=== PATIENT | male | born 1950 | race African-American/Black ===

== ENCOUNTER → 2017-07-01 | Day surgery (SDC) | payer OTHER ==
[~2017-07-01] MED LIST: BUPIVACAINE HCL PF 0.5% 30 ML VIAL ONE; GLUCTAB PO; LACTATED RINGER'S 1000 ML INJ 1,000 ML ONE; LIPI40TA PO; LORT7.5T3 PO; LOTR5CAP2 PO; MIDAZOLAM HCL 2 MG/2 ML VIAL ONE; ONDANSETRON HCL 4 MG/2 ML VIAL IV PUSH ONE; PIOG15 PO; PROPOFOL 200 MG/20 ML AMP IV ONE; ceFAZolin INJ 1,000 MG VIAL ONE
--- NOTE | 2017-07-01 20:15 | MP ---
cc: NYA GARDUNO DATE OF SURGERY 07/01/17 PREOPERATIVE DIAGNOSIS Left foot mass. POSTOPERATIVE DIAGNOSES Left foot mass. PROCEDURE Surgical excision left foot mass. SURGEON Dr. Santi Garduno [employer]MER DRIVER RADHA Machado ANESTHESIA General. ESTIMATED BLOOD LOSS Less than 10 mL TOURNIQUET TIME Zero minutes. JUSTIFICATION This patient is a 56-year male who has a symptomatic recurrent mass along the anteromedial aspect of the dorsal portion of the left foot. The mass is symptomatically painful. He was evaluated at the [facility]. He was counseled as to risks, benefits and alternatives of surgical excision of this mass. He did wish to procedure with surgery. PROCEDURE IN DETAIL A written consent was obtained. The patient was identified by name, taken to the operating room and placed supine on a operating room table. General anesthesia was administered as well as 1 gram of IV Ancef. The left foot and left lower extremity were prepped and draped using Isopropyl alcohol, Hibiclens solution and DuraPrep solution. A time-out was performed. A longitudinal incision was made over the dorsal medial aspect of the left foot in line with the mass. A soft tissue dissection was performed with a 10 blade scalpel circumferentially around the mass and the mass was completely excised with a 15 blade scalpel. The surgical wound was thoroughly irrigated with sterile saline solution. The subcutaneous layer was closed with 3-0 Vicryl suture, Dermabond was applied. Sterile dressing applied. The patient tolerated the procedure well with no intraoperative complications noted. Hernan Arthur, physician assistant controller certified, was present during the entire procedure to include patient positioning and procedure itself. The medical necessity of a physician assistant controller was indicated due to the complexity of the procedure. He assisted with appropriate exposure and to allow for a complete surgical excision of the mass. MD KAEL Meza/ /10:33 AM /8:02 PM
== END | disposition home or self-care (01) ==
LOC: ESDC 08:40
PROVIDERS: ATTEND Orthopaedic Surgery Sports Medicine
DX: M67.472 Ganglion, left ankle and foot (principal)
CPT/HCPCS: 00400; 28043; 88304; J0690; J2250; J2405; J3010; J7120; 88305

== ENCOUNTER 2018-02-13 08:37 | Day surgery (SDC) | payer OTHER ==
[~2018-02-13] VITALS: Ht 182.9 cm; Wt 90.0 kg
[2018-02-13] VITALS (8 sets, daily range): BP systolic 129–144; BP diastolic 77–84; PULSE 46–59; RESP 16–18; TEMP 97.6–98; O2SAT 92–98
[~2018-02-13 08:37] MED LIST changes: -BUPIVACAINE HCL PF 0.5% 30 ML VIAL ONE; -LACTATED RINGER'S 1000 ML INJ 1,000 ML ONE; -MIDAZOLAM HCL 2 MG/2 ML VIAL ONE; -ONDANSETRON HCL 4 MG/2 ML VIAL IV PUSH ONE; -PROPOFOL 200 MG/20 ML AMP IV ONE; -ceFAZolin INJ 1,000 MG VIAL ONE
[2018-02-13] MEDS ORDERED: SODIUM CHLOR 0.9% 1000 ML IV SCH (09:00)
[2018-02-13] MEDS ORDERED: RANI150T PO (09:01)
[2018-02-13] MEDS ORDERED: ATOR40TA16 PO (09:01)
[2018-02-13] MEDS ORDERED: TELM1TAB2 PO (09:01)
[2018-02-13] MEDS ORDERED: AMLO5CAP PO (09:01)
[2018-02-13] MEDS ORDERED: MIDAZOLAM HCL 2 MG/2 ML VIAL ONE (10:27)
[2018-02-13] MEDS ORDERED: LIDOCAINE HCL 1% 20 ML VIAL ONE (10:29)
--- NOTE | 2018-02-13 11:03 | PD.RAD ---
Post Procedure Progress Note Pre Procedure Diagnosis: (1) Elevated LFTs Post Procedure Diagnosis: (1) Elevated LFTs Procedure Date: February 13, 2018 Supervising Radiologist: Emilio Burden Estimated blood loss: none Anesthesia: Local, Conscious Sedation Plan of Activity Patient to Unit: ROPU Patient Condition: Good Additional Comments: Successful ct guided liver biopsy. Single 18ga core sample taken and sent to pathology No hemorrhage evident on follow up CT images Full dictated report to follow See PACS Report for procedural detail/treatment Emilio Burden MD February 13, 2018 11:03
--- NOTE | 2018-02-13 12:21 | RADRPT ---
EXAM DATE/TIME: 02/13/2018 10:45 [facility] COMPARISON: No previous studies available for comparison. INDICATIONS : Fatty liver SEDATION TIME: 30 minutes BIOPSY SITE: Liver MEDICATION(S): 1.) 2 mg midazolam (Versed) IV 2.) 100 mcg fentanyl (Sublimaze) DEVICE(S): 1.) 18 gauge Temno core biopsy needle MEDICAL HISTORY : Hypertension. Hypercholesterolemia. Diabetes SURGICAL HISTORY : None. ENCOUNTER: Initial ACUITY: 1 day PAIN SCORE: 0/10 LOCATION: Liver A total of one core specimen(s) were obtained and sent to the laboratory for pathologic evaluation. PROCEDURE: 1. CT guided liver biopsy. 2. Conscious sedation with continuous EKG and oximetry monitoring. 3. EKG and oximetry remained stable throughout the procedure. Prior to the procedure informed consent was obtained. Any appropriate prior imaging studies were rev iewed. Using automated exposure control and adjustment of the mA and/or kV according to patient size, radiat ion dose was kept as low as reasonably achievable to obtain optimal diagnostic quality images. DICOM format image data is available electronically for review and comparison. The site was prepped in a sterile fashion. Full sterile technique was used, including cap, mask, marito rile gloves and gown and a large sterile sheet. Hand hygiene and 2% chlorhexidine and/or betadine/al cohol prep was utilized per protocol for cutaneous antisepsis. The skin and subcutaneous tissues wer e infiltrated with local anesthetic solution. With CT guidance the previously identified target was localized. Biopsy was performed using the presc ribed needle as above. Adequate hemostasis was obtained with compression at the puncture site. Follow-up CT scan reveals no hemorrhage. The patient tolerated the procedure well and there were no complications. The patient was returned to the Radiology Outpatient Unit in stable condition. CONCLUSION: Uncomplicated CT guided biopsy liver biopsy for function. Emilio Burden MD on February 13, 2018 at 12:18 Board Certified Radiologist. This report was verified electronically.
== END 2018-02-13 15:10 | disposition home or self-care (01) ==
LOC: HRAD 08:37 → HRIP 08:41 → HRAD 15:10
PROVIDERS: ATTEND Internal Medicine Gastroenterology
DX: K75.81 Nonalcoholic steatohepatitis (NASH) (principal); K74.3 Primary biliary cirrhosis; E11.9 Type 2 diabetes mellitus without complications; I10 Essential (primary) hypertension; E78.00 Pure hypercholesterolemia, unspecified
CPT/HCPCS: 47000; 77012; 88307; 88313; 99152; 99153; J2250; J3010; J7030